=== PATIENT | male | born 1995 | race Caucasian/White ===

== ENCOUNTER → 2017-01-17 | Outpatient (REF) | payer OTHER ==
[~2017-01-17] MED LIST: BENA25TA4 PO; MINI2CAP PO; TRAZ50TA4 PO; ZOLO25TA PO; ZOLO50TA PO
== END ==
LOC: M LAB REF 12:05
PROVIDERS: ATTEND Physician Assistant
DX: R30.0 Dysuria (principal)

== ENCOUNTER 2017-04-04 20:57 | Emergency (ER) | payer OTHER ==
[~2017-04-04] VITALS: Ht 182.9 cm; Wt 99.4 kg
[2017-04-04 20:57] VITALS: BP 148/82
[~2017-04-04 20:57] MED LIST changes: +TRAZ50TA11 PO; -TRAZ50TA4 PO
== END 2017-04-04 23:44 | disposition left against medical advice (07) ==
LOC: M ED 20:57
DX: R51 Headache (principal); Z53.29 Procedure and treatment not carried out because of patient's decision for other reasons

== ENCOUNTER 2017-05-09 20:10 | Emergency (ER) | payer OTHER ==
[~2017-05-09] VITALS: Ht 182.9 cm; Wt 100.0 kg
[2017-05-10 04:18] VITALS: BP 140/76
--- NOTE | 2017-05-10 07:53 | REP ---
Clinical: Cough . Comparison: 06/03/2016 . Technique: PA and lateral. Findings: The mediastinum and cardiac silhouette are normal. The lung barbosa are clear and without acute consolidation, effusion, or pneumothorax. The skeletal structures are intact and normal. Impression: 1. No acute cardiopulmonary process. Signed by Irwin Berumen MD 05/10/2017 07:44 A
== END 2017-05-10 04:19 | disposition home or self-care (01) ==
LOC: M ED 20:10
DX: R05 Cough (principal); F41.9 Anxiety disorder, unspecified

== ENCOUNTER → 2017-06-13 | Outpatient (REF) | payer OTHER ==
[~2017-06-13] MED LIST changes: +CEPH500T PO
== END ==
LOC: M LAB REF 17:01
PROVIDERS: ATTEND Physician Assistant Medical
DX: N76.6 Ulceration of vulva (principal)

== ENCOUNTER 2017-06-22 08:55 | Emergency (ER) | payer OTHER ==
[~2017-06-22] VITALS: Ht 182.9 cm; Wt 106.6 kg
[~2017-06-22 08:55] MED LIST changes: -CEPH500T PO
[2017-06-22] MEDS ORDERED: CEPH500T PO (09:17)
--- NOTE | 2017-06-22 11:18 | REP ---
CT of the abdomen pelvis without IV or bowel contrast: There is wall thickening of the transverse colon, descending colon and sigmoid colon. In addition there is induration of the pericolonic fat of the sigmoid colon. Findings are compatible with infectious versus inflammatory colitis in the appropriate clinical setting. There is no ascites or adenopathy. There is no pneumoperitoneum. The visualized lung barbosa are unremarkable. The unenhanced hepatic parenchyma, gallbladder, pancreas and spleen are unremarkable. The unenhanced adrenals, kidneys and abdominal aorta are unremarkable. The remainder of the bowel loops are unremarkable. The mesentery is otherwise unremarkable. Pelvis: The appendix has a normal appearance except for appendicoliths. There is no ascites or adenopathy. The bladder is unremarkable. Impression: There are findings compatible with colitis in the appropriate clinical setting as described above. No ascites, adenopathy or pneumoperitoneum. There is an appendicolith. The appendix is otherwise unremarkable. Signed by Singh Shepherd MD 06/22/2017 11:10 A
[2017-06-22 11:43] VITALS: BP 114/67
== END 2017-06-22 11:49 | disposition home or self-care (01) ==
LOC: M ED 08:55
DX: K52.9 Noninfective gastroenteritis and colitis, unspecified (principal); Z72.0 Tobacco use

== ENCOUNTER 2017-10-20 00:38 | Emergency (ER) | payer OTHER ==
[2017-10-20] MEDS: predniSONE 20 MG TAB PO (03:00)
== END 2017-10-20 03:41 | disposition home or self-care (01) ==
LOC: M ED 00:38
DX: M25.522 Pain in left elbow (principal); M79.641 Pain in right hand; F33.9 Major depressive disorder, recurrent, unspecified; F17.210 Nicotine dependence, cigarettes, uncomplicated
CPT/HCPCS: 99283

== ENCOUNTER 2017-11-05 20:32 | Emergency (ER) | payer OTHER ==
[2017-11-05] MEDS ORDERED: ONDANSETRON 4MG/2ML VIAL (J2405) As Ordered (21:13)
[2017-11-05] MEDS: ONDANSETRON 4MG/2ML VIAL (J2405) IV (21:20)
[2017-11-05] MEDS: NS 1,000 ML IV (21:20)
[2017-11-05] MEDS: KETOROLAC 30 MG/ML VIAL (J1885) IV (21:20)
[2017-11-05 21:40] LABS: BASO # 0.1 10^3/uL (0.0-0.2); BASO % 1.3 % (0.0-1.0); EOS # 0.3 10^3/uL (0.0-0.50); EOS % 3.8 % (0.0-3.0); HEMATOCRIT 44.4 % (42.0-52.0); IMMATURE GRANULOCYTE % 0.2 % (0-3.0); LYMPH # 3.1 10^3/uL (1.5-6.5); LYMPH % 34.8 % (24.0-44.0); MEAN CORPUSCULAR HEMOGLOBIN 31.5 pg (27.0-33.0); MEAN CORPUSCULAR HGB CONC 33.8 g/dl (32.0-36.5); MEAN CORPUSCULAR VOLUME 93.3 fl (80.0-96.0); MONO # 0.9 10^3/uL (0.0-0.8); MONO % 9.9 % (0.0-5.0); NEUTROPHILS # 4.4 10^3/uL (1.8-7.7); PLATELET COUNT, AUTOMATED 244 10^3/uL (150-450); RED BLOOD COUNT 4.76 10^6/uL (4.30-6.10); RED CELL DISTRIBUTION WIDTH 12.3 % (11.5-14.5); WHITE BLOOD COUNT 8.8 10^3/uL (4.0-10.0)
[2017-11-05 21:53] LABS: ALBUMIN 4.1 GM/DL (3.2-5.2); ALBUMIN/GLOBULIN RATIO 1.28 (1.00-1.93); ALKALINE PHOSPHATASE 147 U/L (45-117); ALT/SGPT 40 U/L (12-78); ANION GAP 5 MEQ/L (8-16); AST/SGOT 23 U/L (7-37); BILIRUBIN,DIRECT < 0.1 MG/DL (0.0-0.2); BILIRUBIN,TOTAL 0.3 MG/DL (0.2-1.0); BLOOD UREA NITROGEN 12 MG/DL (7-18); CALCIUM LEVEL 8.9 MG/DL (8.5-10.1); CARBON DIOXIDE LEVEL 31 MEQ/L (21-32); CHLORIDE LEVEL 106 MEQ/L (98-107); CREATININE FOR GFR 1.02 MG/DL (0.70-1.30); GLUCOSE, FASTING 86 MG/DL (70-100); LIPASE 107 U/L (73-393); POTASSIUM SERUM 3.9 MEQ/L (3.5-5.1); SODIUM LEVEL 142 MEQ/L (136-145); TOTAL PROTEIN 7.3 GM/DL (6.4-8.2)
[2017-11-05 21:54] LABS: KETONE, URINE AUTO RFX NEGATIVE (NEGATIVE); LEUKOCYTE ESTERASE UR AUTO RFX NEGATIVE (NEGATIVE); NITRITE, URINE AUTO RFX NEGATIVE (NEGATIVE); RBC, URINE AUTO RFX 0 /HPF (0-3); SPECIFIC GRAVITY UR AUTO RFX 1.018 (1.002-1.035); SQUAM EPITHELIAL CELL UR AURFX 1 /HPF (0-6); WBC, URINE AUTO RFX 5 /HPF (0-3)
[2017-11-05] MEDS ORDERED: ISOVUE-370 76% 100ML VIAL (Q9967) As Ordered (21:58)
== END 2017-11-05 23:17 | disposition home or self-care (01) ==
LOC: M ED 20:32
DX: K52.9 Noninfective gastroenteritis and colitis, unspecified (principal); J45.909 Unspecified asthma, uncomplicated; F33.9 Major depressive disorder, recurrent, unspecified; F41.9 Anxiety disorder, unspecified; F43.9 Reaction to severe stress, unspecified; Z87.442 Personal history of urinary calculi; Z79.899 Other long term (current) drug therapy; Z87.891 Personal history of nicotine dependence
CPT/HCPCS: J2405

== ENCOUNTER → 2018-02-28 | Outpatient (REF) | payer OTHER ==
[2018-02-28 15:24] LABS: HEMOGLOBIN 15.2 g/dl (13.5-17.5); MEAN CORPUSCULAR HEMOGLOBIN 31.7 pg (27.0-33.0); MEAN CORPUSCULAR HGB CONC 33.8 g/dl (32.0-36.5); MEAN CORPUSCULAR VOLUME 93.8 fl (80.0-96.0); PLATELET COUNT, AUTOMATED 261 10^3/uL (150-450); RED CELL DISTRIBUTION WIDTH 12.5 % (11.5-14.5); WHITE BLOOD COUNT 6.6 10^3/uL (4.0-10.0)
[2018-02-28 15:32] LABS: ALBUMIN/GLOBULIN RATIO 1.25 (1.00-1.93); ALKALINE PHOSPHATASE 99 U/L (45-117); ALT/SGPT 41 U/L (12-78); ANION GAP 8 MEQ/L (8-16); AST/SGOT 21 U/L (7-37); BLOOD UREA NITROGEN 11 MG/DL (7-18); CARBON DIOXIDE LEVEL 28 MEQ/L (21-32); CHLORIDE LEVEL 107 MEQ/L (98-107); GLOMERULAR FILTRATION RATE > 60.0 (>60); GLUCOSE, FASTING 87 MG/DL (70-100); POTASSIUM SERUM 4.2 MEQ/L (3.5-5.1); SODIUM LEVEL 143 MEQ/L (136-145); TOTAL PROTEIN 7.2 GM/DL (6.4-8.2)
[2018-02-28 15:44] LABS: ERYTHROCYTE SEDIMENTATION RATE 3 mm/hr (0-15)
== END ==
LOC: M SFHCPLAZ 13:30
DX: K62.5 Hemorrhage of anus and rectum (principal); K52.9 Noninfective gastroenteritis and colitis, unspecified

== ENCOUNTER 2018-04-11 14:50 | Emergency (ER) | payer OTHER ==
[2018-04-11] MEDS: KETOROLAC TROMETHAMINE 10 MG TAB PO (16:16)
== END 2018-04-11 16:19 | disposition home or self-care (01) ==
LOC: M ED 14:50
DX: R51 Headache (principal); S00.01XA Abrasion of scalp, initial encounter; Y04.8XXA Assault by other bodily force, initial encounter; Y92.9 Unspecified place or not applicable; Y93.9 Activity, unspecified; Y99.9 Unspecified external cause status; J45.909 Unspecified asthma, uncomplicated; K21.9 Gastro-esophageal reflux disease without esophagitis; K52.9 Noninfective gastroenteritis and colitis, unspecified; F43.10 Post-traumatic stress disorder, unspecified; F41.9 Anxiety disorder, unspecified; F32.9 Major depressive disorder, single episode, unspecified; J30.81 Allergic rhinitis due to animal (cat) (dog) hair and dander; Z87.442 Personal history of urinary calculi; Z87.891 Personal history of nicotine dependence
CPT/HCPCS: 99282

== ENCOUNTER 2020-12-25 03:12 | Emergency (ER) | payer MEDICAID, OTHER ==
[~2020-12-25] VITALS: Ht 182.9 cm; Wt 122.8 kg
[~2020-12-25 03:12] MED LIST changes: +ACET500T15 PO; +AMOX875T2 PO; +CEPH500T PO; +CITA20TA6 PO; +NAPR-885 PO; +PRED20TA PO; +TRAZ-252 PO; -TRAZ50TA11 PO; +ZOFR4TAB14 PO
[2020-12-25] MEDS ORDERED: METH-1165 PO (05:25)
[2020-12-25] MEDS ORDERED: NAPR-837 PO (05:25)
[2020-12-25] MEDS ORDERED: methocarbamoL 750 MG TAB PO ONE (05:25)
[2020-12-25] MEDS ORDERED: KETOROLAC 60MG 2ML VIAL IM ONE (05:25)
[2020-12-25 06:04] VITALS: BP 131/71
== END 2020-12-25 06:05 | disposition home or self-care (01) ==
LOC: M ED 03:12
DX: M54.5 Low back pain (principal); M41.9 Scoliosis, unspecified; F17.290 Nicotine dependence, other tobacco product, uncomplicated; J30.81 Allergic rhinitis due to animal (cat) (dog) hair and dander
CPT/HCPCS: 96372; 99283; J1885

== ENCOUNTER 2021-02-25 13:05 | Emergency (ER) | payer MEDICAID, OTHER ==
[~2021-02-25] VITALS: Ht 182.9 cm; Wt 116.1 kg
[~2021-02-25 13:05] MED LIST changes: +METH-1165 PO; +NAPR-837 PO
[2021-02-25 14:23] LABS: BASO # 0.1 10^3/uL (0.0-0.2); BASO % 0.7 % (0.0-1.0); EOS % 0.3 % (0.0-3.0); HEMATOCRIT 47.6 % (42.0-52.0); LYMPH # 1.6 10^3/uL (1.5-5.0); LYMPH % 14.3 % (24.0-44.0); MEAN CORPUSCULAR HEMOGLOBIN 31.1 pg (27.0-33.0); MEAN CORPUSCULAR HGB CONC 33.6 g/dl (32.0-36.5); MEAN CORPUSCULAR VOLUME 92.4 fl (80.0-96.0); MONO # 0.3 10^3/uL (0.0-0.8); MONO % 3.1 % (2.0-8.0); NEUTROPHILS % 81.2 % (36.0-66.0); PLATELET COUNT, AUTOMATED 280 10^3/uL (150-450); RED BLOOD COUNT 5.15 10^6/uL (4.30-6.10)
[2021-02-25] MEDS ORDERED: NS 1,000 ML IV ONE (14:30)
[2021-02-25] MEDS ORDERED: ONDANSETRON 4 MG TAB PO ONE (14:30)
[2021-02-25] MEDS ORDERED: ONDANSETRON 4MG/2ML VIAL As Ordered ONE (14:33)
[2021-02-25] MEDS ORDERED: ONDANSETRON 4MG/2ML VIAL IV ONE (14:35)
[2021-02-25 15:00] LABS: ALBUMIN 4.1 GM/DL (3.2-5.2); ALT/SGPT 54 U/L (12-78); BILIRUBIN,DIRECT 0.2 MG/DL (0.0-0.2); BILIRUBIN,TOTAL 0.9 MG/DL (0.2-1.0); BLOOD UREA NITROGEN 13 MG/DL (7-18); CALCIUM LEVEL 9.4 MG/DL (8.5-10.1); CARBON DIOXIDE LEVEL 25 MEQ/L (21-32); CHLORIDE LEVEL 107 MEQ/L (98-107); CREATININE FOR GFR 1.18 MG/DL (0.70-1.30); GLOMERULAR FILTRATION RATE > 60.0 (>60); GLUCOSE, FASTING 154 MG/DL (70-100); LIPASE 60 U/L (73-393); POTASSIUM SERUM 3.9 MEQ/L (3.5-5.1); SODIUM LEVEL 140 MEQ/L (136-145); TOTAL PROTEIN 7.7 GM/DL (6.4-8.2)
[2021-02-25] MEDS ORDERED: KETOROLAC 30 MG/ML 1ML VIAL IV ONE (15:45)
--- NOTE | 2021-02-25 15:49 | REP ---
INDICATION: right flank/abd pain. COMPARISON: Multiple the latest 11/05/2017 TECHNIQUE: Standard helical technique without intravenous contrast do not protocol utilized to right flank pain FINDINGS: The lung bases are clear and unchanged. There is geographic decreased density seen throughout the hepatic parenchyma. Respiratory motion artifact obscures the detail in all of the upper abdomen. There are no cholelith. In the interpolar region of the left kidney there is a 2 mm sized nonobstructing nephrolith. There are no right nephroliths. There are no ureteroliths. There is no hydronephrosis or hydroureter. In the urinary bladder on the right there is a tiny possible calcification. It is in fact a small that focal densitometry on this is almost unable to be performed. There is also minimal possible right periureteral edema. Limited evaluation of the pancreas and adrenal glands show no gross abnormalities. There is no evidence of free fluid or free air. Limited evaluation of the bowel loops and the mesenteries show no gross abnormalities. Bone window technique throughout the examination shows the osseous structures to be stable.. IMPRESSION: Possible tiny past right nephrolith with minimal resultant findings as described above. <Electronically signed by Trae Webster > 02/25/21 [id number]
[2021-02-25] MEDS ORDERED: ONDA4TAB6 PO (16:26)
[2021-02-25] MEDS ORDERED: KETO10TAB PO (16:26)
[2021-02-25 16:42] VITALS: BP 141/74
== END 2021-02-25 16:45 | disposition home or self-care (01) ==
LOC: M ED 13:05
DX: N20.1 Calculus of ureter (principal); E66.9 Obesity, unspecified; R51.9 Headache, unspecified; J45.909 Unspecified asthma, uncomplicated; F43.10 Post-traumatic stress disorder, unspecified; K21.9 Gastro-esophageal reflux disease without esophagitis; Z87.442 Personal history of urinary calculi; K52.9 Noninfective gastroenteritis and colitis, unspecified; J30.81 Allergic rhinitis due to animal (cat) (dog) hair and dander; F17.290 Nicotine dependence, other tobacco product, uncomplicated; Z79.899 Other long term (current) drug therapy
CPT/HCPCS: 36415; 74176; 80048; 80076; 81001; 83605; 83690; 85025; 96361; 96374; 96375; 99284; J1885; J2405

== ENCOUNTER → 2021-03-18 | Outpatient (CLI) | payer OTHER ==
[~2021-03-18] MED LIST changes: +KETO10TAB PO; +ONDA4TAB6 PO
[2021-03-18 14:05] LABS: APPEARANCE, URINE HAZY (CLEAR); BACTERIA, URINE AUTO NEGATIVE (NEGATIVE); BILIRUBIN, URINE AUTO NEGATIVE (NEGATIVE); BLOOD, URINE BLOOD 3+ (NEGATIVE); COLOR, URINE YELLOW (YELLOW); GLUCOSE, URINE (UA) AUTO NEGATIVE (NEGATIVE); KETONE, URINE AUTO NEGATIVE (NEGATIVE); LEUKOCYTE ESTERASE, URINE AUTO NEGATIVE (NEGATIVE); MUCUS, URINE MODERATE (NEGATIVE); NITRITE, URINE AUTO NEGATIVE (NEGATIVE); PROTEIN, URINE AUTO NEGATIVE (NEGATIVE); RBC, URINE AUTO 49 /HPF (0-3); SPECIFIC GRAVITY URINE AUTO 1.023 (1.002-1.035); SQUAMOUS EPITHELIAL CELL UR AU 5 /HPF (0-6); UROBILINOGEN, URINE AUTO 0.2 mg/dL (0.0-2.0); WBC, URINE AUTO 9 /HPF (0-3)
[2021-03-18 14:20] LABS: BASO # 0.1 10^3/uL (0.0-0.2); BASO % 1.2 % (0.0-1.0); EOS # 0.3 10^3/uL (0.0-0.5); HEMATOCRIT 47.5 % (42.0-52.0); HEMOGLOBIN 15.9 g/dl (13.5-17.5); LYMPH # 2.4 10^3/uL (1.5-5.0); LYMPH % 28.5 % (24.0-44.0); MEAN CORPUSCULAR HEMOGLOBIN 31.2 pg (27.0-33.0); MEAN CORPUSCULAR HGB CONC 33.5 g/dl (32.0-36.5); MEAN CORPUSCULAR VOLUME 93.3 fl (80.0-96.0); MONO # 0.6 10^3/uL (0.0-0.8); MONO % 6.8 % (2.0-8.0); NEUTROPHILS # 5.1 10^3/uL (1.5-8.5); NEUTROPHILS % 60.1 % (36.0-66.0); PLATELET COUNT, AUTOMATED 283 10^3/uL (150-450); RED BLOOD COUNT 5.09 10^6/uL (4.30-6.10); WHITE BLOOD COUNT 8.5 10^3/uL (4.0-10.0)
[2021-03-18 14:48] LABS: ALBUMIN 3.9 GM/DL (3.2-5.2); ALT/SGPT 55 U/L (12-78); BILIRUBIN,TOTAL 0.5 MG/DL (0.2-1.0); BLOOD UREA NITROGEN 10 MG/DL (7-18); CALCIUM LEVEL 9.2 MG/DL (8.5-10.1); CARBON DIOXIDE LEVEL 29 MEQ/L (21-32); CHLORIDE LEVEL 107 MEQ/L (98-107); CHOLESTEROL LEVEL 196 MG/DL (<200); CREATININE FOR GFR 0.97 MG/DL (0.70-1.30); GLOMERULAR FILTRATION RATE > 60.0 (>60); GLUCOSE, FASTING 97 MG/DL (70-100); HDL CHOLESTEROL 40 MG/DL (>40); HEMOGLOBIN A1c 5.1 %; LDL CHOLESTEROL 128 MG/DL (<100); NON-HDL-C 156 MG/DL; SODIUM LEVEL 141 MEQ/L (136-145); TOTAL PROTEIN 7.4 GM/DL (6.4-8.2); TRIGLYCERIDES LEVEL 139 MG/DL (<150)
[2021-03-18 14:49] LABS: FERRITIN 112 NG/ML (26-388); FREE T4 0.95 NG/DL (0.76-1.46); IRON (FE) 58 UG/DL (65-175); PERCENT SATURATION 18.1 % (19.7-50.0); TOTAL IRON BINDING CAPACITY 320 UG/DL (250-450)
[2021-03-18 14:50] LABS: TOTAL 25(OH) VITAMIN D 21.5 NG/ML (30.0-100.0)
[2021-03-18 14:51] LABS: FOLATE 10.6 NG/ML (>5.4); VITAMIN B12 LEVEL 492 PG/ML (247-911)
[2021-03-18 15:30] LABS: HIV SCREEN CENTAUR SOURCE NEGATIVE (NEGATIVE)
[2021-03-19 12:17] LABS: HEPATITIS C QUANTITATION HCV Not Detected IU/mL (.)
== END ==
LOC: M LAB 11:55
PROVIDERS: ATTEND Nurse Practitioner Family
DX: Z00.00 Encounter for general adult medical examination without abnormal findings (principal); E66.9 Obesity, unspecified; F17.200 Nicotine dependence, unspecified, uncomplicated; Z13.228 Encounter for screening for other metabolic disorders; Z13.1 Encounter for screening for diabetes mellitus; Z13.29 Encounter for screening for other suspected endocrine disorder; H61.23 Impacted cerumen, bilateral

== ENCOUNTER 2021-03-25 16:51 | Emergency (ER) | payer OTHER ==
[~2021-03-25] VITALS: Ht 182.9 cm; Wt 121.3 kg
[2021-03-25] MEDS ORDERED: CIPR500T39 (17:01)
[2021-03-25] MEDS ORDERED: diazePAM 10 MG TAB PO ONE (18:45)
[2021-03-25] MEDS ORDERED: LIDOCAINE 5% (LIDODERM) PATCH TD ONE (18:45)
[2021-03-25] MEDS ORDERED: NAPROXEN 250 MG TAB PO ONE (18:45)
[2021-03-25] MEDS ORDERED: CYCL-707 PO (19:10)
[2021-03-25 19:26] VITALS: BP 142/85
[2021-03-26] MEDS ORDERED: **NOTE PATIENT COMMENT** MISC XX ONE (07:00)
== END 2021-03-25 19:34 | disposition home or self-care (01) ==
LOC: M ED 16:51
DX: M54.5 Low back pain (principal); R51.9 Headache, unspecified; K21.9 Gastro-esophageal reflux disease without esophagitis; J45.909 Unspecified asthma, uncomplicated; F17.200 Nicotine dependence, unspecified, uncomplicated; Z87.442 Personal history of urinary calculi; Z79.899 Other long term (current) drug therapy; Z91.018 Allergy to other foods

== ENCOUNTER 2021-08-20 10:30 | Emergency (ER) | payer OTHER ==
[~2021-08-20] VITALS: Ht 182.9 cm; Wt 123.7 kg
[2021-08-20 10:30] VITALS: BP 133/74
[~2021-08-20 10:30] MED LIST changes: +CIPR500T39; +CYCL-707 PO
[2021-08-20 11:33] LABS: BASO # 0.1 10^3/uL (0.0-0.2); EOS # 0.2 10^3/uL (0.0-0.5); EOS % 1.6 % (0.0-3.0); HEMATOCRIT 46.4 % (42.0-52.0); HEMOGLOBIN 15.5 g/dl (13.5-17.5); LYMPH # 2.8 10^3/uL (1.5-5.0); LYMPH % 20.8 % (24.0-44.0); MEAN CORPUSCULAR HEMOGLOBIN 30.8 pg (27.0-33.0); MEAN CORPUSCULAR HGB CONC 33.4 g/dl (32.0-36.5); MEAN CORPUSCULAR VOLUME 92.2 fl (80.0-96.0); MONO # 1.2 10^3/uL (0.0-0.8); MONO % 9.1 % (2.0-8.0); NEUTROPHILS % 67.2 % (36.0-66.0); PLATELET COUNT, AUTOMATED 282 10^3/uL (150-450); RED BLOOD COUNT 5.03 10^6/uL (4.30-6.10); WHITE BLOOD COUNT 13.3 10^3/uL (4.0-10.0)
[2021-08-20 12:08] LABS: ALBUMIN 3.8 GM/DL (3.2-5.2); ALT/SGPT 50 U/L (12-78); BILIRUBIN,DIRECT 0.3 MG/DL (0.0-0.2); BILIRUBIN,TOTAL 1.2 MG/DL (0.2-1.0); BLOOD UREA NITROGEN 12 MG/DL (7-18); CALCIUM LEVEL 9.9 MG/DL (8.5-10.1); CARBON DIOXIDE LEVEL 30 MEQ/L (21-32); CHLORIDE LEVEL 104 MEQ/L (98-107); CREATININE FOR GFR 1.33 MG/DL (0.70-1.30); GLOMERULAR FILTRATION RATE > 60.0 (>60); GLUCOSE, FASTING 113 MG/DL (70-100); LIPASE 65 U/L (73-393); POTASSIUM SERUM 3.8 MEQ/L (3.5-5.1); SODIUM LEVEL 139 MEQ/L (136-145); TOTAL PROTEIN 7.8 GM/DL (6.4-8.2)
[2021-08-20 14:53] LABS: GC DNA AMPLIFICATION NEGATIVE (NEGATIVE)
== END 2021-08-20 13:13 | disposition left against medical advice (07) ==
LOC: M ED 10:30
DX: R31.0 Gross hematuria (principal); Z53.9 Procedure and treatment not carried out, unspecified reason; J30.81 Allergic rhinitis due to animal (cat) (dog) hair and dander; Z87.442 Personal history of urinary calculi; F17.200 Nicotine dependence, unspecified, uncomplicated; Z91.018 Allergy to other foods

== ENCOUNTER → 2023-07-06 | Outpatient (REF) | payer OTHER ==
[2023-07-06 14:48] LABS: BASO # 0.1 10^3/uL (0.0-0.2); BASO % 1.6 % (0.0-1.0); EOS # 0.3 10^3/uL (0.0-0.5); EOS % 3.9 % (0.0-3.0); HEMOGLOBIN 16.4 g/dl (13.5-17.5); LYMPH # 2.4 10^3/uL (1.5-5.0); LYMPH % 29.9 % (24.0-44.0); MEAN CORPUSCULAR HEMOGLOBIN 31.3 pg (27.0-33.0); MEAN CORPUSCULAR HGB CONC 33.5 g/dl (32.0-36.5); MEAN CORPUSCULAR VOLUME 93.5 fl (80.0-96.0); MONO # 0.6 10^3/uL (0.0-0.8); MONO % 7.9 % (2.0-8.0); NEUTROPHILS # 4.5 10^3/uL (1.5-8.5); NEUTROPHILS % 56.4 % (36.0-66.0); PLATELET COUNT, AUTOMATED 320 10^3/uL (150-450); RED BLOOD COUNT 5.24 10^6/uL (4.30-6.10)
[2023-07-06 14:58] LABS: ALBUMIN 3.9 G/DL (3.2-5.2); ALKALINE PHOSPHATASE 98 U/L (46-116); ALT/SGPT 69 U/L (7.0-40); AST/SGOT 32 U/L (<34); BILIRUBIN,TOTAL 0.6 MG/DL (0.3-1.2); BLOOD UREA NITROGEN 13 MG/DL (9-23); CALCIUM LEVEL 9.9 MG/DL (8.5-10.1); CARBON DIOXIDE LEVEL 30 MMOL/L (20-31); CHLORIDE LEVEL 105 MMOL/L (98-107); CHOLESTEROL LEVEL 177 MG/DL (<200); CREATININE FOR GFR 1.01 MG/DL (0.70-1.30); GLOMERULAR FILTRATION RATE > 60.0 (>60); GLUCOSE, FASTING 99 MG/DL (60-100); HDL CHOLESTEROL 35.4 MG/DL (>40); LDL CHOLESTEROL 113.2 MG/DL (<100); NON-HDL-C 141.6 MG/DL; POTASSIUM SERUM 4.5 MMOL/L (3.5-5.1); SODIUM LEVEL 141 MMOL/L (136-145); THYROID STIMULATING HORMONE 1.434 uIU/ML (0.55-4.78); TOTAL 25(OH) VITAMIN D 21.3 NG/ML (20.0-100.0); TOTAL PROTEIN 7.1 G/DL (5.7-8.2); TRIGLYCERIDES LEVEL 142 MG/DL (<150)
[2023-07-06 15:03] LABS: HEMOGLOBIN A1c 5.1 % (4.0-6.0)
== END ==
LOC: M LAB REF 12:12
PROVIDERS: ATTEND Nurse Practitioner Family
DX: Z13.228 Encounter for screening for other metabolic disorders (principal)

== ENCOUNTER 2024-05-15 14:46 | Emergency (ER) | payer OTHER ==
[~2024-05-15] VITALS: Ht 185.4 cm; Wt 134.0 kg
[~2024-05-15 14:46] MED LIST changes: +ONDA-282 PO; -ONDA4TAB6 PO
[2024-05-15] MEDS ORDERED: CYCL-707 PO (17:29)
[2024-05-15] MEDS ORDERED: IBUP-1022 PO (17:29)
[2024-05-15 17:33] VITALS: BP 155/98; TEMP 97.8; O2SAT 97
== END 2024-05-15 17:38 | disposition home or self-care (01) ==
LOC: M ED 14:46
DX: M79.10 Myalgia, unspecified site (principal); K21.9 Gastro-esophageal reflux disease without esophagitis; Z87.891 Personal history of nicotine dependence